=== PATIENT | female | born 1975 | race Caucasian/White ===

== ENCOUNTER 2024-06-27 13:21 | Emergency (ER) | payer SELFPAY ==
[2024-06-27] VITALS (17 sets, daily range): BP systolic 141–186; BP diastolic 79–113; PULSE 64–89; TEMP 37.1; O2SAT 95–99; BMI 48.3
--- NOTE | 2024-06-27 13:45 | ECG_ITS ---
[facility] Test Date: 2024-06-27 Pat Name: ODELL BHATTI Department: Room: - Gender: Female [employer]: : 1975 Requested By: [id number] Order Number: [id number] Reading MD: ESTRELLA ADAIR M.D. Measurements Intervals [place] Rate: 77 P: 63 TN: 130 QRS: 67 QRSD: 102 T: 49 QT: 370 QTc: 402 Interpretive Statements 1100 Sinus rhythm 9110 normal ECG No previous ECG available for comparison Electronically Signed On 06-27-2024 17:51:07 EDT by ESTRELLA ADAIR M.D.
[2024-06-27 14:03] LABS: Basophils Absolute Auto 0.1 10^3/uL (0.0-0.1); Basophils Percent Auto 0.6 % (0.2-2.0); Eosinophils Absolute Auto 0.1 10^3/uL (0.0-0.7); Eosinophils Percent Auto 1.1 % (0.9-7.0); Hematocrit 44.2 % (36.0-48.0); Hemoglobin 15.2 g/dL (12.0-16.0); Immature Granulocytes Abs Auto 0.02 10^3/uL (0.00-0.03); Immature Granulocytes Pct Auto 0.2 % (0.0-0.5); Lymphocytes Absolute Auto 1.3 10^3/uL (1.2-3.8); Lymphocytes Percent Auto 15.2 % (20.5-60.0); Mean Corpuscular HGB Conc 34.4 g/dL (29.9-35.2); Mean Corpuscular Hemoglobin 30.3 pg (26.7-34.0); Mean Corpuscular Volume 88.2 fL (81.0-99.0); Mean Platelet Volume 8.8 fL (9.5-13.5); Monocytes Absolute Auto 0.4 10^3/uL (0.3-0.8); Monocytes Percent Auto 4.5 % (1.7-12.0); Neutrophils Absolute Auto 6.7 10^3/uL (1.4-6.5); Neutrophils Percent Auto 78.4 % (43.0-75.0); Platelet Count 339 10^3/uL (150-450); Red Blood Count 5.01 10^6/uL (4.20-5.40); Red Cell Distribution Width 11.9 % (11.0-15.0); White Blood Count 8.5 10^3/uL (4.0-11.0)
[2024-06-27 14:14] LABS: HCG Qualitative NEGATIVE (NEGATIVE); Internal Control Within Normal Limits
[2024-06-27 14:23] LABS: Alanine Aminotransferase 17 U/L (14-59); Albumin Level 3.5 g/dL (3.4-5.0); Alkaline Phosphatase 80 U/L (46-116); Anion Gap 13.8; Aspartate Amino Transferase 12 U/L (15-37); Bilirubin Total 0.5 mg/dL (0.2-1.0); Calcium 9.2 mg/dL (8.5-10.1); Carbon Dioxide 26.1 mmol/L (21.0-32.0); Chloride 104 mmol/L (98-107); Estimated GFR (African America >60 (>=60 mL/min/1.73m^2); Estimated GFR (Non-African Ame >60 (>=60 mL/min/1.73m^2); Globulin 3.4 g/dL; Glucose 95 mg/dL (74-106); Potassium 3.9 mmol/L (3.5-5.1); Sodium 140 mmol/L (136-145); Total Protein 6.9 g/dL (6.4-8.2); Troponin I High Sensitivity <4.0 pg/mL (4.0-51.3)
[2024-06-27] MEDS: FAMOTIDINE/PF 20 MG/2 ML VIAL IV (14:58)
--- NOTE | 2024-06-27 15:51 | ED.CHESTPAI1 ---
HPI - Chest Pain General Chief Complaint: Chest Pain Stated Complaint: CHEST PAIN, SHORTNESS OF BREATH, ANXIOUS Time Seen by Provider: 06/27/24 13:44 Source: patient Mode of arrival: walk-in Limitations: no limitations History of Present Illness HPI narrative: Patient is a 49-year-old female is coming to the ER with a retrosternal chest pain that is pressure-like has been going on at least for 4 days, the patient denies any fever chills or any other complaints she also denies any difficulty breathing, patient is emotional and hearing she mentioned that she had her anniversary of divorce today The patient denies any other concerns She denies cigarette smoking Related Data Previous Rx's ?Medication ?Instructions ?Recorded famotidine 20 mg tablet (Pepcid) 20 mg PO BID #20 tabs 06/27/24 Allergies Allergy/AdvReac Type Severity Reaction Status Date / Time No Known Drug Allergies Allergy Verified 06/27/24 13:32 Review of Systems ROS Status of ROS 10 or more systems reviewed and unremarkable except as noted in history and below PFSH PFSH Social History Little interest or pleasure in doing things: not at all Feeling down, depressed, or hopeless: not at all Exam Narrative Exam Narrative: Nurses notes and vital signs reviewed and patient is not hypoxic. General: Well-appearing and in no apparent distress. Skin: Warm, dry, no pallor noted. No rash. Head: Normocephalic, atraumatic. Neck: Supple, non-tender. Cardiovascular: Regular Rate and Rhythm without murmur, gallop or rub. Respiratory: No accessory muscle use or respiratory distress. Lungs are clear to auscultation, no wheezing, rales or rhonchi Chest Wall: no tenderness Back: No midline thoracic or lumbar vertebral tenderness. No CVA tenderness Musculoskeletal: normal ROM, no calf or popliteal tenderness, no lower extremity edema/swelling GI: Abdomen is soft, non-distended. Normal bowel sounds. No masses appreciated. No tenderness to palpation. No rebound, guarding, or rigidity noted. Neurological: A&O x4. No cranial nerve dysfunction observed. No truncal ataxia. Moves all extremities. Sensation intact. Psychiatric: Cooperative and interactive. Normal mood and affect. Constitutional Vital Signs, click to edit/add: Last Vital Signs Temp 98.7 F 06/27/24 13:32 Pulse 81 06/27/24 15:50 Resp 19 06/27/24 15:50 BP 141/79 06/27/24 13:46 Pulse Ox 99 06/27/24 15:50 O2 Del Method Room Air 06/27/24 14:00 Course Vital Signs Vital signs: Vital Signs Temperature 98.7 F 06/27/24 13:32 Pulse Rate 75 06/27/24 13:32 Respiratory Rate 20 06/27/24 13:32 Blood Pressure 186/113 H 06/27/24 13:32 Pulse Oximetry 98 06/27/24 13:32 Oxygen Delivery Method Room Air 06/27/24 13:32 Temperature 98.7 F 06/27/24 13:32 Pulse Rate 81 06/27/24 15:50 Respiratory Rate 19 06/27/24 15:50 Blood Pressure 141/79 06/27/24 13:46 Pulse Oximetry 99 06/27/24 15:50 Oxygen Delivery Method Room Air 06/27/24 14:00 MDM - Chest Pain MDM Narrative Medical decision making narrative: The patient EKG showing sinus rhythm with a heart rate of [address] elevation or depression The patient chest x-ray showed no acute pathology CBC and chemistry as well as troponin showed no acute pathology The patient was feeling much better after being treated with Pepcid She mostly have atypical chest pain secondary to either esophageal spasm or acid reflux Although I did speak with the patient extensively regarding her emotions and she mentioned that she is just sad she is not depressed although she have a history of depression and she also denies being suicidal homicidal The patient really contacted her psychiatrist and she will talk to her today later I offered her to be evaluated by [facility] psychiatry but she mentioned that she is okay and she does not want to be evaluated right now for that The patient is to follow up with primary care physician in next 2-3 days or to return to the emergency department should any of the signs or symptoms worsen or new symptoms develop. The patient agrees with the following Diagnosis and Treatment plan and the patient will be discharged home. Lab Data Labs: Lab Results 06/27/24 Range/Units 13:52 WBC 8.5 (4.0-11.0) 10^3/uL RBC 5.01 (4.20-5.40) 10^6/uL Hgb 15.2 (12.0-16.0) g/dL Hct 44.2 (36.0-48.0) % MCV 88.2 (81.0-99.0) fL MCH 30.3 (26.7-34.0) pg MCHC 34.4 (29.9-35.2) g/dL RDW 11.9 (11.0-15.0) % Plt Count 339 (150-450) 10^3/uL MPV 8.8 L (9.5-13.5) fL Neut % (Auto) 78.4 H (43.0-75.0) % Lymph % (Auto) 15.2 L (20.5-60.0) % [place] % (Auto) 4.5 (1.7-12.0) % Eos % (Auto) 1.1 (0.9-7.0) % Baso % (Auto) 0.6 (0.2-2.0) % Neut # (Auto) 6.7 H (1.4-6.5) 10^3/uL Lymph # (Auto) 1.3 (1.2-3.8) 10^3/uL [place] # (Auto) 0.4 (0.3-0.8) 10^3/uL Eos # (Auto) 0.1 (0.0-0.7) 10^3/uL Baso # (Auto) 0.1 (0.0-0.1) 10^3/uL Abs Immat Gran (auto) 0.02 (0.00-0.03) 10^3/uL Imm/Tot Granulo (auto) 0.2 (0.0-0.5) % Sodium 140 (136-145) mmol/L Potassium 3.9 (3.5-5.1) mmol/L Chloride 104 (98-107) mmol/L Carbon Dioxide 26.1 (21.0-32.0) mmol/L Anion Gap 13.8 BUN 16.0 (7.0-18.0) mg/dL Creatinine 0.84 (0.55-1.02) mg/dL Est GFR ( Amer) >60 (>=60 mL/min/1.73m^2) Est GFR (Non-Af Amer) >60 (>=60 mL/min/1.73m^2) BUN/Creatinine Ratio 19.0 Glucose 95 (74-106) mg/dL Calcium 9.2 (8.5-10.1) mg/dL Total Bilirubin 0.5 (0.2-1.0) mg/dL AST 12 L (15-37) U/L ALT 17 (14-59) U/L Alkaline Phosphatase 80 (46-116) U/L Troponin I High Sens <4.0 L (4.0-51.3) pg/mL Total Protein 6.9 (6.4-8.2) g/dL Albumin 3.5 (3.4-5.0) g/dL Globulin 3.4 g/dL Albumin/Globulin Ratio 1.0 Serum HCG, Qual Negative (NEGATIVE) Discharge Plan Discharge Chief Complaint: Chest Pain Clinical Impression: Atypical chest pain Patient Disposition: Home, Self-Care Time of Disposition Decision: 15:52 Condition: Good Prescriptions / Home Meds: New famotidine [Pepcid] 20 mg tablet 20 mg PO BID Qty: 20 0RF Print Language: Kiswahili Instructions: Chest Pain (ED) Referrals: [facility] [Primary Care Provider] - 1 week Discharge Date/Time: 06/27/24 16:02
== END 2024-06-27 16:02 | disposition home or self-care (01) ==
PROVIDERS: Emergency Provider Emergency Medicine
DX: R07.89 Other chest pain (principal); F32.A Depression, unspecified
CPT/HCPCS: 36415; 71045; 80053; 84484; 84703; 85025; 93005; 96374; 99285; J3490